=== PATIENT | female | born 1985 | race Caucasian/White ===

== ENCOUNTER 2016-10-14 07:21 | Day surgery (SDC) | payer OTHER ==
[~2016-10-14 07:21] MED LIST: IBUPROFEN200 M2 PO; MIRALAX17 G2 PO; MOTRIN800 MG PO; MULTIVITAMINS1 EAC6 PO; PERCOCET 5MG/AP1 TA1 PO; PHENTERMINE H37.5 M1 PO; PRENATAL1 EACH PO; ZYRTEC10 M7 PO
== END 2016-10-14 16:00 ==
LOC: SRG 07:21 → SHSC 07:22 → ORW 09:29 → PACU 11:17 → SHSC 12:09
PROC: 0FT44ZZ Resection of Gallbladder, Percutaneous Endoscopic Approach (ICD-10-PCS; principal; 2016-10-14)
DX: K80.10 Calculus of gallbladder with chronic cholecystitis without obstruction (principal); K43.2 Incisional hernia without obstruction or gangrene; K66.0 Peritoneal adhesions (postprocedural) (postinfection); Z79.899 Other long term (current) drug therapy; Z87.891 Personal history of nicotine dependence; Z98.890 Other specified postprocedural states
CPT/HCPCS: J0690; J3010; J7030